=== PATIENT | male | born 1945 | race Caucasian/White ===

== ENCOUNTER 2022-01-07 15:22 | Observation (INO) ==
[2022-01-07 16:12] LABS: Basophils # 0.1 K/mcL (0.0-0.2); Basophils % 0.4 %; Eosinophils # 0.1 K/mcL (0.0-0.6); Eosinophils % 0.6 %; Hematocrit 41.3 % (37.5-50.1); Hemoglobin 13.7 g/dL (12.9-16.9); Immature Granulocytes % 0.5 % (0-4); Lymphocytes # 1.5 K/mcL (0.6-4.6); Lymphocytes % 11.3 %; Mean Corpuscular HGB Conc 33.2 g/dL (31.6-35.5); Mean Corpuscular Hemoglobin 31.4 pg (28.0-33.3); Mean Corpuscular Volume 94.7 fL (83.0-100.0); Mean Platelet Volume 10.8 fL (9.4-12.4); Monocytes % 7.4 %; Neutrophils # 10.8 K/mcL (1.6-8.9); Platelet Count 265 K/mcL (140-400); Red Blood Count 4.36 M/mcL (4.19-5.50); Segmented Neutrophils % 79.8 %; White Blood Count 13.5 K/mcL (4.3-11.1)
[2022-01-07 16:33] LABS: BUN/Creatinine Ratio 16 (6-26); Blood Urea Nitrogen 29 mg/dL (8-23); Calcium 9.6 mg/dL (8.6-10.3); Carbon Dioxide 24 mEq/L (23-29); Chloride 106 mEq/L (98-107); Glucose 146 mg/dL (70-105); Osmolality,Calculated 292 (280-300); Potassium 5.4 mEq/L (3.5-5.1); Sodium 137 mEq/L (136-145); Troponin I < 0.03 ng/mL (< 0.04); eGFR For African Americans 45 (> 60); eGFR For Non-African Americans 37 (> 60)
[2022-01-07] MEDS ORDERED: 0.9 % Sodium Chloride 1,000 ML IVC ONE ×2 (16:49→16:50)
[2022-01-07] MEDS ORDERED: Albuterol 2.5 MG/3 ML NEBULIZER IH ONE (16:53)
[2022-01-07 17:42] LABS: INR 1.1; Prothrombin Time 11.8 Seconds (9.4-12.1)
[2022-01-07 17:45] LABS: Activated Partial Thrombo Time 29.2 Seconds (26.0-36.0)
[2022-01-07 18:35] LABS: Amorphous Sediment,Urine Few per hpf (None-Few); Bilirubin,Urine Negative (Negative); Blood,Urine Negative (Negative); Clarity,Urine Clear (Clear); Color,Urine Yellow (Yellow); Glucose,Urine (UA) Normal (Normal); Hyaline Casts,Urine Many per lpf (None Seen); Ketones,Urine Negative (Negative); Leukocyte Esterase,Urine Negative (Negative); Mucus,Urine Few per lpf (None-Few); Nitrite,Urine Negative (Negative); Protein,Urine 30 mg/dL (Neg-Trace); RBC,Urine 15-30 per hpf (0-3); Specific Gravity,Urine 1.027 (1.010-1.025); Squamous Epithelial Cell,Urine Few per hpf (None-Few); Urobilinogen,Urine Normal (Normal)
[2022-01-07] MEDS ORDERED: Melatonin 3 MG TABLET PO PRN (22:00)
[2022-01-07] MEDS ORDERED: Ondansetron 4 MG/2 ML VIAL IVP PRN (22:00)
[2022-01-07] MEDS ORDERED: Naloxone 0.4 MG/ML INJ IVP PRN (22:00)
[2022-01-07] MEDS: Ringers Solution, Lactated 1,000 ML IVC SCH (22:27)
[2022-01-07 22:41] LABS: Calcium 8.4 mg/dL (8.6-10.3); Potassium 4.1 mEq/L (3.5-5.1)
[2022-01-07] MEDS ORDERED: Perflutren Lipid Microsphere 1.3 ML in 0.9 % Sodium Chloride 8.7 ML IVP PRN (22:54)
[2022-01-08] MEDS ORDERED: Gabapentin 400 MG CAPSULE PO SCH (01:00)
[2022-01-08 03:23] LABS: Basophils # 0.1 K/mcL (0.0-0.2); Basophils % 0.6 %; Eosinophils # 0.3 K/mcL (0.0-0.6); Eosinophils % 3.4 %; Hematocrit 33.7 % (37.5-50.1); Immature Granulocytes % 0.6 % (0-4); Lymphocytes # 1.8 K/mcL (0.6-4.6); Mean Corpuscular HGB Conc 32.9 g/dL (31.6-35.5); Mean Corpuscular Hemoglobin 31.1 pg (28.0-33.3); Mean Corpuscular Volume 94.4 fL (83.0-100.0); Monocytes # 0.9 K/mcL (0.0-1.3); Monocytes % 10.3 %; Neutrophils # 5.9 K/mcL (1.6-8.9); Platelet Count 204 K/mcL (140-400); Red Blood Count 3.57 M/mcL (4.19-5.50); Segmented Neutrophils % 65.1 %
[2022-01-08 03:30] LABS: Hemoglobin 11.1 g/dL (12.9-16.9); Prothrombin Time 11.2 Seconds (9.4-12.1)
[2022-01-08 03:39] LABS: BUN/Creatinine Ratio 20 (6-26); Blood Urea Nitrogen 24 mg/dL (8-23); Calcium 8.3 mg/dL (8.6-10.3); Carbon Dioxide 21 mEq/L (23-29); Chloride 114 mEq/L (98-107); Glucose 86 mg/dL (70-105); Osmolality,Calculated 295 (280-300); Phosphorous 3.5 mg/dL (2.7-4.5); Potassium 3.9 mEq/L (3.5-5.1); Sodium 141 mEq/L (136-145); eGFR For African Americans > 60 (> 60); eGFR For Non-African Americans 59 (> 60)
[2022-01-08 03:42] LABS: Chol/HDL Ratio 2.8 (0-4.9)
[2022-01-08] MEDS ORDERED: Regadenoson 0.4 MG/5 ML SYRINGE IVP ONE (06:47)
[2022-01-08] MEDS ORDERED: predniSONE 5 MG TABLET PO SCH (07:30)
[2022-01-08] MEDS: Ringers Solution, Lactated 1,000 ML IVC SCH (08:59)
[2022-01-08] MEDS ORDERED: Aspirin Enteric Coated 81 MG Tablet PO SCH (09:00)
[2022-01-08] MEDS: Calcium Gluconate 1gm/50mL 1 GM/50 ML BAG IVPB SCH ×2 (13:04→15:09)
[2022-01-08 16:20] VITALS: BP 118/68; PULSE 56; TEMP 98; O2SAT 97
== END 2022-01-08 17:55 | disposition home or self-care (01) ==
LOC: EMEROOARM 15:22 → 2ANU 15:22 → SUATTDRO 20:50 → 2ANU 21:45
PROVIDERS: ADMIT Internal Medicine; ATTEND Internal Medicine

== ENCOUNTER 2022-03-11 08:30 | Inpatient (IN) ==
[2022-03-11] MEDS ORDERED: Morphine Sulfate 2 MG/ML SYRINGE IVP ONE ×2 (08:50→11:38)
[2022-03-11 09:15] LABS: Basophils % 0.4 %; Eosinophils # 0.3 K/mcL (0.0-0.6); Eosinophils % 2.8 %; Hematocrit 38.9 % (37.5-50.1); Hemoglobin 12.8 g/dL (12.9-16.9); Immature Granulocytes % 0.3 % (0-4); Lymphocytes # 1.3 K/mcL (0.6-4.6); Lymphocytes % 11.7 %; Mean Corpuscular HGB Conc 32.9 g/dL (31.6-35.5); Mean Corpuscular Hemoglobin 31.6 pg (28.0-33.3); Mean Platelet Volume 10.6 fL (9.4-12.4); Monocytes # 0.9 K/mcL (0.0-1.3); Monocytes % 7.8 %; Neutrophils # 8.7 K/mcL (1.6-8.9); Platelet Count 210 K/mcL (140-400); Red Blood Count 4.05 M/mcL (4.19-5.50); Red Cell Distribution Width 12.8 % (11.5-14.5); White Blood Count 11.3 K/mcL (4.3-11.1)
[2022-03-11 09:22] LABS: Prothrombin Time 11.5 Seconds (9.4-12.1)
[2022-03-11 09:36] LABS: BUN/Creatinine Ratio 14 (6-26); Blood Urea Nitrogen 18 mg/dL (8-23); Calcium 9.5 mg/dL (8.6-10.3); Carbon Dioxide 25 mEq/L (23-29); Chloride 107 mEq/L (98-107); Glucose 120 mg/dL (70-105); Osmolality,Calculated 291 (280-300); Potassium 4.1 mEq/L (3.5-5.1); Sodium 139 mEq/L (136-145); Troponin I < 0.03 ng/mL (< 0.04)
[2022-03-11] MEDS ORDERED: Lidocaine 1% 20 ML MDV ONE (10:10)
[2022-03-11] MEDS ORDERED: *HR* FentaNYL (PF) 100 MCG/2 ML VIAL ONE (10:24)
[2022-03-11] MEDS ORDERED: 0.9 % Sodium Chloride 1,000 ML IV ONE (10:50)
[2022-03-11] MEDS ORDERED: Naloxone 0.4 MG/ML INJ IVP PRN (11:33)
[2022-03-11] MEDS ORDERED: *HR* HYDROcodone/Acet 5/325 mg TABLET PO PRN (11:33)
[2022-03-11] MEDS ORDERED: Ipratropium/Albuterol Neb 3 ML IH PRN (11:39)
[2022-03-11] MEDS ORDERED: *HR* FentaNYL (PF) 100 MCG/2 ML VIAL IVP ONE (12:18)
[2022-03-11] MEDS ORDERED: Ondansetron 4 MG/2 ML VIAL IM ONE (13:01)
[2022-03-11] MEDS ORDERED: methocarbamoL 750 MG TABLET PO ONE (14:15)
[2022-03-11] MEDS ORDERED: Ketorolac 30 MG/ML VIAL IVP ONE (14:16)
[2022-03-11] MEDS: *HR* OxyCODONE Immed Rel 5 MG TABLET PO PRN (17:45)
[2022-03-11] MEDS: *HR* HYDROmorphone (PF) 1 MG/ML SYRINGE IVP PRN (21:33)
[2022-03-12] MEDS: *HR* OxyCODONE Immed Rel 5 MG TABLET PO PRN (00:34)
[2022-03-12 01:47] LABS: Basophils % 0.2 %; Eosinophils # 0.1 K/mcL (0.0-0.6); Eosinophils % 0.6 %; Hematocrit 39.9 % (37.5-50.1); Hemoglobin 13.1 g/dL (12.9-16.9); Immature Granulocytes % 0.3 % (0-4); Lymphocytes # 1.2 K/mcL (0.6-4.6); Mean Corpuscular HGB Conc 32.8 g/dL (31.6-35.5); Mean Corpuscular Hemoglobin 31.8 pg (28.0-33.3); Mean Corpuscular Volume 96.8 fL (83.0-100.0); Mean Platelet Volume 11.2 fL (9.4-12.4); Monocytes # 1.1 K/mcL (0.0-1.3); Monocytes % 8.7 %; Neutrophils # 9.9 K/mcL (1.6-8.9); Platelet Count 216 K/mcL (140-400); Red Blood Count 4.12 M/mcL (4.19-5.50); Red Cell Distribution Width 12.8 % (11.5-14.5); Segmented Neutrophils % 80.2 %; White Blood Count 12.3 K/mcL (4.3-11.1)
[2022-03-12 02:02] LABS: Calcium 9.2 mg/dL (8.6-10.3); Magnesium 2.1 mg/dL (1.6-2.6); Phosphorous 4.4 mg/dL (2.7-4.5); Potassium 4.4 mEq/L (3.5-5.1)
[2022-03-12] MEDS: Ascorbic Acid 500 MG TABLET PO SCH (08:12)
[2022-03-12] MEDS: *HR* HYDROmorphone (PF) 1 MG/ML SYRINGE IVP PRN (08:12)
[2022-03-12] MEDS ORDERED: *HR* OxyCODONE Immed Rel 5 MG TABLET PO PRN (11:07)
[2022-03-12] MEDS: Ondansetron 4 MG/2 ML VIAL IVP PRN (12:17)
[2022-03-12] MEDS ORDERED: Metoclopramide 10 MG/2 ML VIAL IVP ONE (16:37)
[2022-03-12] MEDS: Acetaminophen 325 MG TABLET PO PRN (17:54)
[2022-03-12] MEDS: Gabapentin 400 MG CAPSULE PO SCH (20:12)
[2022-03-13 06:45] LABS: Basophils # 0.1 K/mcL (0.0-0.2); Basophils % 0.5 %; Eosinophils # 0.3 K/mcL (0.0-0.6); Eosinophils % 2.9 %; Hematocrit 41.2 % (37.5-50.1); Hemoglobin 13.6 g/dL (12.9-16.9); Immature Granulocytes % 0.4 % (0-4); Lymphocytes # 1.3 K/mcL (0.6-4.6); Lymphocytes % 11.5 %; Mean Corpuscular Hemoglobin 31.3 pg (28.0-33.3); Mean Corpuscular Volume 94.7 fL (83.0-100.0); Mean Platelet Volume 11.2 fL (9.4-12.4); Monocytes # 1.3 K/mcL (0.0-1.3); Neutrophils # 8.1 K/mcL (1.6-8.9); Platelet Count 215 K/mcL (140-400); Red Blood Count 4.35 M/mcL (4.19-5.50); Red Cell Distribution Width 12.7 % (11.5-14.5); Segmented Neutrophils % 72.7 %; White Blood Count 11.1 K/mcL (4.3-11.1)
[2022-03-13 07:06] LABS: Calcium 9.2 mg/dL (8.6-10.3)
[2022-03-13] MEDS: Ascorbic Acid 500 MG TABLET PO SCH (08:38)
[2022-03-13] MEDS: Acetaminophen 325 MG TABLET PO PRN ×2 (10:57→16:22)
[2022-03-13] MEDS: Ondansetron 4 MG/2 ML VIAL IVP PRN ×2 (11:57→20:20)
[2022-03-13] MEDS: 0.9 % Sodium Chloride 1,000 ML IVC SCH (11:57)
[2022-03-13] MEDS: Gabapentin 400 MG CAPSULE PO SCH (20:19)
[2022-03-13] MEDS: *HR* HYDROmorphone (PF) 1 MG/ML SYRINGE IVP PRN (20:20)
[2022-03-14] MEDS: 0.9 % Sodium Chloride 1,000 ML IVC SCH ×3 (00:34→17:57)
[2022-03-14] MEDS: *HR* HYDROmorphone (PF) 1 MG/ML SYRINGE IVP PRN ×4 (00:34→23:11)
[2022-03-14 02:27] LABS: Calcium 8.9 mg/dL (8.6-10.3); Potassium 4.6 mEq/L (3.5-5.1)
[2022-03-14] MEDS: Ascorbic Acid 500 MG TABLET PO SCH (08:18)
[2022-03-14] MEDS: Acetaminophen 325 MG TABLET PO PRN (11:45)
[2022-03-14] MEDS: polyethylene glycoL 3350 17 GM POWD.PACK PO SCH (12:49)
[2022-03-14] MEDS ORDERED: Famotidine 20 MG TABLET PO ONE (20:04)
[2022-03-14] MEDS: Gabapentin 400 MG CAPSULE PO SCH (20:19)
[2022-03-15] MEDS: 0.9 % Sodium Chloride 1,000 ML IVC SCH (01:57)
[2022-03-15 02:19] LABS: Basophils # 0.1 K/mcL (0.0-0.2); Basophils % 0.5 %; Eosinophils # 0.8 K/mcL (0.0-0.6); Eosinophils % 7.7 %; Hematocrit 35.4 % (37.5-50.1); Immature Granulocytes % 0.4 % (0-4); Lymphocytes # 1.4 K/mcL (0.6-4.6); Lymphocytes % 14.2 %; Mean Corpuscular HGB Conc 33.6 g/dL (31.6-35.5); Mean Corpuscular Hemoglobin 31.9 pg (28.0-33.3); Mean Corpuscular Volume 94.9 fL (83.0-100.0); Mean Platelet Volume 10.6 fL (9.4-12.4); Monocytes # 1.3 K/mcL (0.0-1.3); Neutrophils # 6.5 K/mcL (1.6-8.9); Platelet Count 192 K/mcL (140-400); Red Blood Count 3.73 M/mcL (4.19-5.50); Red Cell Distribution Width 12.6 % (11.5-14.5); Segmented Neutrophils % 64.2 %; White Blood Count 10.1 K/mcL (4.3-11.1)
[2022-03-15 02:20] LABS: Hemoglobin 11.9 g/dL (12.9-16.9)
[2022-03-15 02:34] LABS: Calcium 8.8 mg/dL (8.6-10.3); Potassium 4.7 mEq/L (3.5-5.1)
[2022-03-15] MEDS: *HR* HYDROmorphone (PF) 1 MG/ML SYRINGE IVP PRN ×3 (06:14→19:54)
[2022-03-15] MEDS: Ascorbic Acid 500 MG TABLET PO SCH (09:06)
[2022-03-15] MEDS: polyethylene glycoL 3350 17 GM POWD.PACK PO SCH (10:48)
[2022-03-15] MEDS: Acetaminophen 325 MG TABLET PO PRN ×2 (16:28→23:15)
[2022-03-15] MEDS: Gabapentin 400 MG CAPSULE PO SCH (19:53)
[2022-03-16] MEDS: *HR* HYDROmorphone (PF) 1 MG/ML SYRINGE IVP PRN ×3 (00:05→11:08)
[2022-03-16 03:27] LABS: Basophils % 0.4 %; Eosinophils # 0.9 K/mcL (0.0-0.6); Eosinophils % 8.7 %; Hematocrit 40.9 % (37.5-50.1); Hemoglobin 13.4 g/dL (12.9-16.9); Immature Granulocytes % 0.2 % (0-4); Lymphocytes # 1.2 K/mcL (0.6-4.6); Lymphocytes % 12.5 %; Mean Corpuscular HGB Conc 32.8 g/dL (31.6-35.5); Mean Corpuscular Hemoglobin 31.6 pg (28.0-33.3); Mean Corpuscular Volume 96.5 fL (83.0-100.0); Mean Platelet Volume 10.5 fL (9.4-12.4); Monocytes # 1.1 K/mcL (0.0-1.3); Monocytes % 10.9 %; Neutrophils # 6.6 K/mcL (1.6-8.9); Platelet Count 212 K/mcL (140-400); Red Blood Count 4.24 M/mcL (4.19-5.50); Red Cell Distribution Width 12.6 % (11.5-14.5); Segmented Neutrophils % 67.3 %; White Blood Count 9.8 K/mcL (4.3-11.1)
[2022-03-16 03:46] LABS: Calcium 9.3 mg/dL (8.6-10.3); Potassium 4.6 mEq/L (3.5-5.1)
[2022-03-16] MEDS: Ondansetron 4 MG/2 ML VIAL IVP PRN (06:19)
[2022-03-16] MEDS: polyethylene glycoL 3350 17 GM POWD.PACK PO SCH (09:54)
[2022-03-16] MEDS: Ascorbic Acid 500 MG TABLET PO SCH (09:54)
[2022-03-16 16:12] VITALS: BP 90/49; PULSE 97; TEMP 98.4; O2SAT 90
== END 2022-03-16 17:59 | disposition home or self-care (01) | DRG 199 ==
LOC: 2NNU 08:30 → EMEROOARM 08:30 → SUATTDRO 16:39 → 2NNU 17:47
PROVIDERS: ADMIT Internal Medicine; ATTEND Family Medicine